=== PATIENT | male | born 1965 | race African-American/Black ===

== ENCOUNTER 2022-08-10 02:01 | Emergency (ER) | payer MEDICAID ==
[~2022-08-10] VITALS: Ht 180.3 cm; Wt 75.0 kg
[2022-08-10] MEDS ORDERED: HYDROcodone-ACET 10/325MG TAB PO ONE (04:30)
[2022-08-10 07:00] VITALS: BP 159/103
== END 2022-08-10 15:59 | disposition home or self-care (01) ==
LOC: EDBD 02:01 → ER 02:01
DX: H40.9 Unspecified glaucoma (principal)
CPT/HCPCS: 70450; 70486; 93005

== ENCOUNTER 2023-04-01 07:51 | Emergency (ER) | payer MEDICAID ==
[~2023-04-01] VITALS: Ht 175.3 cm; Wt 62.0 kg
[2023-04-01] MEDS ORDERED: MORPHINE SULFATE 4 MG/ML SYR/VIAL IV ONE (09:00)
[2023-04-01] MEDS ORDERED: ONDANSETRON HCL 4 MG/2 ML VIAL IV ONE (09:00)
[2023-04-01 09:33] LABS: Basophils # (auto) 0.1 10 ^3/uL (0-0.2); Basophils % (auto) 0.7 % (0.0-2.0); Eosinophils # (auto) 0.1 10 ^3/uL (0-0.8); Eosinophils % (auto) 0.9 % (0.0-7.0); Hematocrit 36.5 % (41.0-53.0); Hemoglobin 12.5 g/dL (13.5-17.5); Lymphocytes # (auto) 1.1 10 ^3/uL (0.4-5.4); Lymphocytes % (auto) 12.4 % (10.0-50.0); Mean Corpuscular Hemoglobin 29.3 pg (28.0-32.0); Mean Corpuscular Hgb Conc. 34.2 g/dL (32.0-36.0); Mean Corpuscular Volume 85.8 fL (80.0-100.0); Monocytes # (auto) 0.6 10 ^3/uL (0-1.3); Monocytes % (auto) 6.7 % (0.0-12.0); Neutrophils # (auto) 6.8 10 ^3/uL (1.6-8.6); Neutrophils % (auto) 79.3 % (37.0-80.0); Nucleated Red Blood Cells % 0.1 %; Red Blood Cells 4.26 10^6/uL (4.5-5.90); Red Cell Distribution Width 14.8 % (11.8-14.3); White Blood Cell 8.6 10^3/uL (4.4-10.8)
[2023-04-01 09:53] VITALS: BP 179/107
[2023-04-01 09:54] LABS: Albumin 2.8 g/dL (3.4-5.0); Potassium 3.9 mmol/L (3.5-5.1)
[2023-04-01 10:00] LABS: Bilirubin, Total 0.4 mg/dL (0.2-1.0); Total Protein 7.9 g/dL (6.4-8.2)
[2023-04-01] MEDS ORDERED: IOHEXOL 300 MG/ML 100ML BOTTLE IJ ONE (10:21)
[2023-04-01 10:44] LABS: Urine Bacteria NONE SEEN /hpf (None Seen); Urine Blood Negative /uL (Negative); Urine Mucus FEW (None Seen); Urine Specific Gravity 1.012 (1.001-1.035); Urine WBC 2 /hpf (0 - 3)
[2023-04-01] MEDS ORDERED: HYDR-4902 PO (12:53)
[2023-04-01] MEDS ORDERED: HYDR5CRE3 PR (12:53)
[2023-04-01] MEDS ORDERED: CEPH-510 PO (12:53)
== END 2023-04-01 13:32 | disposition home or self-care (01) ==
LOC: ER 07:51
DX: B07.8 Other viral warts (principal); K64.8 Other hemorrhoids; I10 Essential (primary) hypertension
CPT/HCPCS: 36415; 74177; 80053; 81001; 83605; 83690; 84484; 85025; 86301; 86850; 86900; 86901; 87040; 96374; 96375; 99285; J2270; J2405; Q9967

== ENCOUNTER 2023-05-23 09:08 | Emergency (ER) | payer MEDICAID ==
[~2023-05-23] VITALS: Ht 175.3 cm; Wt 63.6 kg
[~2023-05-23 09:08] MED LIST: CEPH-510 PO; HYDR-4902 PO; HYDR2.5C39 TOP; HYDR5CRE3 PR; IBUP-1456 PO
[2023-05-23 10:01] VITALS: BP 147/97
[2023-05-23] MEDS ORDERED: KETOROLAC TROMETH 60MG/2ML VIAL IM ONE (11:15)
[2023-05-23] MEDS ORDERED: IBUP-1456 PO (11:26)
== END 2023-05-23 11:34 | disposition home or self-care (01) ==
LOC: ER 09:08
DX: S52.614A Nondisplaced fracture of right ulna styloid process, initial encounter for closed fracture (principal); S62.313A Displaced fracture of base of third metacarpal bone, left hand, initial encounter for closed fracture; I10 Essential (primary) hypertension; F17.210 Nicotine dependence, cigarettes, uncomplicated; Z79.1 Long term (current) use of non-steroidal anti-inflammatories (NSAID); Z79.899 Other long term (current) drug therapy; V89.2XXA Person injured in unspecified motor-vehicle accident, traffic, initial encounter; Y93.89 Activity, other specified; Y92.89 Other specified places as the place of occurrence of the external cause; Y99.8 Other external cause status
CPT/HCPCS: 29125; 73110; 73130; 96372; 99284; J1885

== ENCOUNTER 2023-10-17 00:32 | Emergency (ER) | payer MEDICAID ==
[~2023-10-17] VITALS: Ht 175.3 cm; Wt 69.0 kg
[2023-10-17 00:43] VITALS: BP 181/109; PULSE 89; RESP 20; O2SAT 98
[2023-10-17 02:21] LABS: Alanine Aminotransferase 16 U/L (7-40); Albumin 4.1 g/dL (3.2-4.8); Alkaline Phosphatase 79 U/L (46-116); Anion Gap 11 (5-15); Aspartate Aminotransferase 19 U/L (13-40); BUN/Creatinine Ratio 7.5 (10.0-20.0); Basophils # (auto) 0 10 ^3/uL (0-0.2); Basophils % (auto) 0.4 % (0.0-2.0); Blood Urea Nitrogen 8 mg/dL (9-23); Calcium 9.1 mg/dL (8.7-10.4); Carbon Dioxide 20 mmol/L (20-30); Chloride 106 mmol/L (98-107); Eosinophils # (auto) 0.1 10 ^3/uL (0-0.8); Eosinophils % (auto) 1.1 % (0.0-7.0); Glucose 117 mg/dL (74-106); Hematocrit 37.3 % (41.0-53.0); Hemoglobin 12.7 g/dL (13.5-17.5); Lymphocytes # (auto) 1.5 10 ^3/uL (0.4-5.4); Lymphocytes % (auto) 15.9 % (10.0-50.0); Mean Corpuscular Hemoglobin 30.2 pg (28.0-32.0); Mean Corpuscular Hgb Conc. 34.1 g/dL (32.0-36.0); Mean Corpuscular Volume 88.4 fL (80.0-100.0); Monocytes # (auto) 0.8 10 ^3/uL (0-1.3); Monocytes % (auto) 8.2 % (0.0-12.0); Neutrophils # (auto) 7.2 10 ^3/uL (1.6-8.6); Neutrophils % (auto) 74.4 % (37.0-80.0); Nucleated Red Blood Cells % 0.1 %; Potassium 3.5 mmol/L (3.5-5.1); Red Blood Cells 4.21 10^6/uL (4.5-5.90); Red Cell Distribution Width 15.7 % (11.8-14.3); Sodium 137 mmol/L (136-145); White Blood Cell 9.7 10^3/uL (4.4-10.8)
[2023-10-17 02:22] LABS: Bilirubin, Total 0.6 mg/dL (0.2-1.0); Total Protein 8.2 g/dL (5.7-8.2)
== END 2023-10-17 07:35 | disposition left against medical advice (07) ==
LOC: ER 00:32
DX: K62.89 Other specified diseases of anus and rectum (principal); Z53.21 Procedure and treatment not carried out due to patient leaving prior to being seen by health care provider
CPT/HCPCS: 36415; 80053; 85025; 86850; 86900; 86901